=== PATIENT | female | born 1995 ===

== ENCOUNTER 2017-05-28 21:44 | Emergency (ER) | payer OTHER ==
[2017-05-28 21:48] VITALS: BP 124/74
--- NOTE | 2017-05-28 21:57 | ED ---
Head Injury - HPI Summary HPI Summary: 22F presents with head injury on Friday. struck head on head board. no LOC. no vomiting. no headache until Friday. is throbbing on back of head. has some nausea occasionally. admits to photophobia and difficulty concentrating. - History Of Current Complaint Chief Complaint: UCHeadInjury Stated Complaint: HEAD INJURY Time Seen by Provider: 05/28/17 21:50 Hx Last Menstrual Period: 05/27/17 PMH/Surg Hx/FS Hx/Imm Hx Endocrine/Hematology History: Denies: Hx Anticoagulant Therapy Cardiovascular History: Denies: Hx Hypertension - Surgical History Surgery Procedure, Year, and Place: t/a Infectious Disease History: No Infectious Disease History: Denies: Hx Clostridium Difficile, Hx Hepatitis, Hx Human Immunodeficiency Virus (HIV), Hx of Known/Suspected MRSA, Hx Shingles, Hx Tuberculosis, Hx Known/ Suspected VRE, Hx Known/Suspected VRSA, History Other Infectious Disease, Traveled Outside the in Last 30 Days - Family History Known Family History: Negative: Seizure Disorder - Social History Alcohol Use: Occasionally Substance Use Type: Reports: None Smoking Status (MU): Never Smoked Tobacco Review of Systems Negative: Fever Negative: Chest Pain Negative: Shortness Of Breath Positive: Nausea Positive: Headache All Other Systems Reviewed And Are Negative: Yes Physical Exam Triage Information Reviewed: Yes Vital Signs On Initial Exam: Initial Vitals Temp Pulse Resp BP Pulse Ox 97.8 F 91 20 124/74 100 05/28/17 21:45 05/28/17 21:45 05/28/17 21:45 05/28/17 21:45 05/28/17 21:45 Vital Signs Reviewed: Yes Appearance: Positive: Well-Appearing Skin: Positive: Warm, Dry Head/Face: Positive: Normal Head/Face Inspection Eyes: Positive: Normal, EOMI, JONI, Conjunctiva Clear ENT: Positive: Normal ENT inspection, Pharynx normal, TMs normal Neck: Positive: Supple, Nontender Respiratory/Lung Sounds: Positive: Clear to Auscultation, Breath Sounds Present Cardiovascular: Positive: Normal, RRR Abdomen Description: Positive: Nontender, Soft Bowel Sounds: Positive: Present Musculoskeletal: Positive: Normal Neurological: Positive: Sensory/Motor Intact, Alert, Oriented to Person Place, Time, CN Intact II-III, Heel to Toe, Finger to Nose - Megan Coma Scale Best Eye Response: 4 - Spontaneous Best Motor Response: 6 - Obeys Commands Best Verbal Response: 5 - Oriented Diagnostics - Vital Signs Vital Signs Temp Pulse Resp BP Pulse Ox 05/28/17 21:45 97.8 F 91 20 124/74 100 - Laboratory Lab Statement: Any lab studies that have been ordered have been reviewed, and results considered in the medical decision making process. Head Injury Course/Dx Course Of Treatment: 22F presents with head injury on Friday. struck head on head board. no LOC. no vomiting. no headache until Friday. is throbbing on back of head. has some nausea occasionally. admits to photophobia and difficulty concentrating. normal neuro exam. according to uz[facility] CT rules no imaging needed. patient likely has concusion. patient understands and agrees with plan. - Diagnoses Differential Diagnosis/HQI/PQRI: Concussion Without LOC, Contusion, Intracranial Bleed Provider Diagnoses: Head injury Discharge - Discharge Plan Condition: Good Disposition: HOME Patient Education Materials: Head Injury (ED) Referrals: No Primary Care Phys,NOPCP [Primary Care Provider] - Additional Instructions: Place ice on area as needed Take Tylenol for headache every 6 hours Is normal to feel sleeper than usual and to have a change in appetite Follow up with primary within 5 days Return to ED if develop vomiting, severe headache, change in behavior, or any new or worsening symptoms
== END 2017-05-28 22:01 | disposition home or self-care (01) ==
LOC: UCEAST 21:44
DX: S09.90XA Unspecified injury of head, initial encounter (principal); W22.8XXA Striking against or struck by other objects, initial encounter; Y92.9 Unspecified place or not applicable
CPT/HCPCS: 99211; G0463

== ENCOUNTER 2017-05-30 07:19 | Emergency (ER) | payer OTHER ==
[2017-05-30 07:33] VITALS: BP 126/74
--- NOTE | 2017-05-30 08:36 | UC ---
Head Injury HPI - HPI Summary HPI Summary: 4 DAYS AGO PT WAS STANDING ON HER BED AFTER UNPACKING FROM MOVING AND FLOPPED BACKWARDS TO LAY DOWN. STRUCK THE BACK OF HER HEAD ON THE HEADBOARD. NO LOC OR MEMORY LOSS BUT DID HAVE AVENDANO, NAUSEA, DIZZINESS AND PHOTOPHOBIA. NAUSEA AND DIZZINESS ARE RESOLVED. AVENDANO IS PERSISTENT BUT IMPROVED AND PT STILL HAS SOME RESIDUAL PHOTOPHOBIA. WAS SEEN HERE 2 DAYS AGO AND NO CT HEAD WAS INDICATED. OVERALL IS FEELING BETTER. IBUPROFEN IS HELPFUL. PT IS TRAVELLING TO [place] AND HER MOM WANTED HER TO COME IN FOR A CT SCAN. - History Of Current Complaint Chief Complaint: UCHeadInjury Stated Complaint: RECHECK HEAD INJURY Time Seen by Provider: 05/30/17 07:51 Hx Obtained From: Patient Hx Last Menstrual Period: 05/27/17 Onset/Duration: Sudden Onset, Lasting Days, Still Present - BUT BETTER Severity Currently: Moderate Severity Initially: Moderate Pain Intensity: 6 Pain Scale Used: 0-10 Numeric Character: Throbbing Aggravating Factor(s): Nothing Alleviating Factor(s): Nothing Associated Signs And Symptoms: Negative: LOC (Time In Secs./Mins/Hrs), LOC Duration Unknown, Confusion, Memory Loss, Seizure, Epistaxis, Dental Malocclusion, Neck Pain - Allergies/Home Medications Allergies/Adverse Reactions: Allergies Allergy/AdvReac Type Severity Reaction Status Date / Time Amoxicillin Allergy Hives Verified 05/30/17 07:34 Cefprozil [From Cefzil] Allergy Hives Verified 05/30/17 07:34 Clavulanic Acid Allergy Hives Verified 05/30/17 07:34 [From Augmentin] Home Medications: Home Medications Acetaminophen [Acetaminophen Extra Stren] 2 tab PO Q6HR PRN 05/30/17 [History Confirmed 05/30/17] Norgestimate-Ethinyl Estradiol [Sprintec 28 0.25-35 mg-Mcg] 1 tab PO DAILY 05/30 [History Confirmed 05/30/17] PMH/Surg Hx/FS Hx/Imm Hx Previously Healthy: Yes Other History Of: Negative For: Anticoagulant Therapy - Surgical History Surgical History: Yes Surgery Procedure, Year, and Place: t/a - Family History Known Family History: Positive: Hypertension Negative: Seizure Disorder, Blood Disorder - Social History Alcohol Use: Occasionally Substance Use Type: None Smoking Status (MU): Never Smoked Tobacco - Immunization History Most Recent Influenza Vaccination: Not UTD Review of Systems Constitutional: Negative Eyes: Photophobia ENT: Negative Respiratory: Negative Cardiovascular: Negative Gastrointestinal: Negative Neurological: Headache All Other Systems Reviewed And Are Negative: Yes Physical Exam Triage Information Reviewed: Yes Appearance: Well-Appearing, No Pain Distress, Well-Nourished Vital Signs: Initial Vital Signs Temp 97.9 F 05/30/17 07:28 Pulse 75 05/30/17 07:28 Resp 16 05/30/17 07:28 BP 126/74 05/30/17 07:28 Pulse Ox 98 05/30/17 07:28 Vital Signs Reviewed: Yes Eyes: Positive: Conjunctiva Clear ENT: Positive: Hearing grossly normal, Pharynx normal, TMs normal Neck: Positive: Supple, Nontender, No Lymphadenopathy Respiratory Exam: Normal Cardiovascular Exam: Normal Abdomen Description: Positive: Soft Musculoskeletal: Positive: No Edema Neurological: Positive: Alert, Other: - CN II-XII GROSSLY INTACT BILATERALLY. NEG PRONATOR DRIFT. NEGATIVE ROMBERG. FINGER TO NOSE INTACT BILATERALLY. HEEL TO BLANCO INTACT BILATERALLY. HEEL TO TOE INTACT BILATERALLY. RAPID ALTERNATING MVMTS INTACT. 5/5 STRENGTH Psychological: Positive: Age Appropriate Behavior Skin: Negative: rashes Head Injury Course/Dx - Course Course Of Treatment: NO INDICATION FOR NEUROIMAGING PER [place] CT HEAD RULE. PT STATES SHE IS IMPROVED. DISCUSSED RISKS OF RADIATION FROM CT SCAN VS BENEFITS AND PT IS OKAY WITH NOT OBTAINING CT HEAD TODAY. ADVISED THAT IF SX WERE TO CHANGE OR WORSEN OR STOP IMPROVING THEN THIS COULD RE READDRESSED. - Differential Dx/Diagnosis Provider Diagnoses: CONCUSSION - IMPROVING Discharge - Discharge Plan Condition: Stable Disposition: HOME Patient Education Materials: Concussion (ED), Post Concussion Syndrome (ED) Referrals: No Primary Care Phys,NOPCP [Primary Care Provider] - Additional Instructions: NO INDICATION FOR NEUROIMAGING AT THIS TIME. YOU DO NOT MEET CRITERIA AND YOUR SYMPTOMS ARE IMPROVING. OKAY FOR IBUPROFEN NEEDED FOR HEADACHE. ENSURE YOU ARE GETTING ENOUGH REST AND STAY HYDRATED. GO TO THE ER WITHOUT FAIL IF YOU DEVELOP UNEQUAL PUPILS, VISUAL DISTURBANCE, GAIT INSTABILITY, SPEECH DIFFICULTY, NAUSEA/VOMITING, WORSENING HEADACHE, DIZZINESS, CONFUSION, WEAKNESS OR ANY OTHER CONCERNING SYMPTOMS.
== END 2017-05-30 08:36 | disposition home or self-care (01) ==
LOC: UCEAST 07:19
DX: S06.0X0A Concussion without loss of consciousness, initial encounter (principal); W22.8XXA Striking against or struck by other objects, initial encounter; Y92.9 Unspecified place or not applicable
CPT/HCPCS: 99211; G0463